=== PATIENT | male | born 1960 | race Caucasian/White ===

== ENCOUNTER 2016-08-28 17:33 | Emergency (ER) ==
[2016-08-28 17:34] VITALS: BMI 27.1
[2016-08-28] MEDS ORDERED: ZOFRAN 4 MG/2 ML IVP STA (17:53)
[2016-08-28] MEDS ORDERED: TORADOL IVP STA (17:53)
[2016-08-28] MEDS ORDERED: MORPHINE 4 MG/ML SYRINGE IVP STA (17:54)
--- NOTE | 2016-08-28 18:00 | ED.PDOC ---
General ED Provider: Dr. PATITO DUFF JR Chief Complaint: Abdominal Pain Stated Complaint: PAIN LEFT FLANK TO ABD TO LEFT TESTICLE 90 min [End]98.4 90 20 98% 172/100 02/22 Time Seen by Physician: 17:57 Mode of Arrival: Walk-In Information Source: Patient Exam Limitations: No limitations Primary Care Provider: MIKE POTTS Nursing and Triage Documentation Reviewed and Agree: No Review of Systems - Review Of Systems Constitutional: Reports: No symptoms Eyes: Reports: No symptoms Ears, Nose, Mouth, Throat: Reports: No symptoms Respiratory: Reports: No symptoms Cardiac: Reports: No symptoms GI: Reports: No symptoms : Reports: Flank pain Musculoskeletal: Reports: Other Skin: Reports: No symptoms Neurological: Reports: No symptoms Endocrine: Reports: No symptoms Hematologic/Lymphatic: Reports: No symptoms All Other Systems: Other Past Medical History - Past Medical History Endocrine: Reports: None Cardiovascular: Reports: Hypertension Respiratory: Reports: None Hematological: Reports: None Gastrointestinal: Reports: GERD Genitourinary: Reports: None Neuro/Psych: Reports: None Musculoskeletal: Reports: None Cancer: Reports: None - Surgical History General Surgical History: Reports: Appendectomy - Family History Family History: Reports: Unknown (does not recall any family mentioning kidney stones) - Social History Smoking Status: Current every day smoker Hx Substance Use: No Alcohol Screening: None Physical Exam - Physical Exam Appearance: Well-appearing Pain Distress: Moderate Eyes: ABBIE, EOMI, Conjunctiva clear ENT: Ears normal, Nose normal, Oropharynx normal Neck: Supple Respiratory: Airway patent, Breath sounds clear, Breath sounds equal, Respirations nonlabored Cardiovascular: RRR, Pulses normal, No rub, No murmur GI/: Soft, Nontender, No masses, Bowel sounds normal, No Organomegaly (pain left cva without tenderness radiates from left testicle no benefit with elevation, non tender) Musculoskeletal: Normal strength Skin: Warm, Dry, Normal color Neurological: Sensation intact, Motor intact, Reflexes intact, Cranial nerves intact, Alert, Oriented Interpretation - Radiology Interpretation Radiology Interpretation By: Radiologist Radiology Results: Positive Exam Interpreted: CT Scan (abdome left sided stone) Critical Care Note - Critical Care Note Total Time (mins): 0 Course - Course Hematology/Chemistry: 08/28/16 17:35 08/28/16 17:35 Orders, Labs, Meds: Lab Review 08/28/16 17:35 WBC 13.00 H RBC 5.01 Hgb 14.7 Hct 42.7 MCV 85.2 MCH 29.3 MCHC 34.4 RDW Coeff of Miguel 13.6 Plt Count 388 Immature Gran % (Auto) 0.5 Neut % (Auto) 76.7 Lymph % (Auto) 15.3 Wharton % (Auto) 6.2 Eos % (Auto) 0.5 Baso % (Auto) 0.8 Immature Gran # (Auto) 0.1 Neut # 10.0 H Lymph # 2.0 Wharton # 0.8 Eos # 0.1 Baso # 0.1 Sodium 139 Potassium 4.2 Chloride 107 Carbon Dioxide 22 Anion Gap 14.2 BUN 19 H Creatinine 1.42 H Estimated GFR (MDRD) 52.00 BUN/Creatinine Ratio 13.38 Glucose 109 H Calcium 9.9 Total Bilirubin 0.55 AST 26 ALT 24 Alkaline Phosphatase 153 H Total Protein 7.4 Albumin 4.1 Globulin 3.3 Albumin/Globulin Ratio 1.24 Amylase 147 H Lipase 218 H Orders Category Date Time Status ED IV/MEDIPORT/POWERPORT .ONCE EMERGENCY 08/28/16 17:52 Active AMYLASE Stat LAB 08/28/16 17:35 Completed CBC W/ AUTO DIFF Stat LAB 08/28/16 17:35 Completed COMPREHENSIVE METABOLIC PANEL Stat LAB 08/28/16 17:35 Completed LIPASE Stat LAB 08/28/16 17:35 Completed URINALYSIS C & S IF INDICATED Stat LAB 08/28/16 17:52 Uncollected 0.9 % Sodium Chloride [Saline Flush] MEDS 08/28/16 17:52 Ordered 1 syr IVF PRN PRN Ketorolac Tromethamine [Toradol] MEDS 08/28/16 17:53 Discontinued 30 mg IVP ONCE STA Morphine Sulfate [Morphine 4 mg/ml Syringe] MEDS 08/28/16 17:54 Discontinued 4 mg IVP ONCE STA Ondansetron HCl/Pf [Zofran 4 mg/2 ml] MEDS 08/28/16 17:53 Discontinued 4 mg IVP ONCE STA CT ABDOMEN/PELVIS WO CONTRAST Stat RADS 08/28/16 17:52 Completed Medications Generic Name Dose Route Start Last Admin Trade Name Freq PRN Reason Stop Dose Admin Sodium Chloride 1 syr 08/28/16 17:52 Saline Flush IVF PRN PRN To flush IV Discontinued Medications Generic Name Dose Route Start Last Admin Trade Name Freq PRN Reason Stop Dose Admin Ketorolac Tromethamine 30 mg 08/28/16 17:53 08/28/16 17:59 Toradol IVP 08/28/16 17:54 30 mg ONCE STA Administration Morphine Sulfate 4 mg 08/28/16 17:54 08/28/16 18:00 Morphine 4 Mg/Ml Syringe IVP 08/28/16 17:55 4 mg ONCE STA Administration Ondansetron HCl 4 mg 08/28/16 17:53 08/28/16 18:00 Zofran 4 Mg/2 Ml IVP 08/28/16 17:54 4 mg ONCE STA Administration Vital Signs: Temp Pulse Resp BP Pulse Ox 08/28/16 17:38 98.4 F 90 20 172/100 H 98 Departure - Departure Time of Disposition: 18:00 Disposition: HOME SELF-CARE Discharge Problem: Left ureteral calculus Instructions: Renal Colic (ED), Ureteral Stones (ED) Condition: Good Pt referred to PMD for follow-up: Yes Additional Instructions: pancreatic enzymes are slightly positive recommend avoid milk and solid food for 7 to 10 days and recheck labs no alcohol while pancreatic enzymes are elevated will need further lab studies for pancreatitis stone in left Ureter(kidney stone) appears to be responsible for pain stone is small enough it should pass increase clear liquids Toradol for pain Dellrose for pain not controlled Flomax to encourage stone to pass Recommend consult Urology for kidney stones recommend save stone for analysis(strain Urine) Prescriptions: Hydrocodone Bit/Acetaminophen [Dellrose 5-325] 1 - 2 tab PO Q6HR PRN #12 tablet PRN Reason: pain Ketorolac Tromethamine [Toradol] 10 mg PO QID PRN #20 tablet PRN Reason: PAIN Tamsulosin HCl [Flomax] 0.4 mg PO DAILY #30 cap.er.24h Allergies/Adverse Reactions: Allergies No Known Allergies Allergy (Verified 08/28/16 17:36) Home Medications: Ambulatory Orders Omeprazole [Prilosec] 20 mg PO QDAC 07/07/13 Hydrocodone Bit/Acetaminophen [Dellrose 5-325] 1 - 2 tab PO Q6HR PRN #12 tablet Ketorolac Tromethamine [Toradol] 10 mg PO QID PRN #20 tablet 08/28/16 Losartan Potassium [Cozaar] 25 mg PO DAILY 08/28/16 Tamsulosin HCl [Flomax] 0.4 mg PO DAILY #30 cap.er.24h 08/28/16
[2016-08-28 18:05] LABS: BASOPHILS # (AUTO) 0.1 K/uL (0-0.2); BASOPHILS % (AUTO) 0.8 % (0.0-3.0); EOSINOPHILS # (AUTO) 0.1 K/ul (0.0-0.7); EOSINOPHILS % (AUTO) 0.5 % (0.0-7.0); HEMATOCRIT 42.7 % (42.0-52.0); HEMOGLOBIN 14.7 g/dl (14.0-18.0); IMMATURE GRANULOCYTE % (AUTO) 0.5 % (0.0-5.0); LYMPHOCYTES % (AUTO) 15.3 (10.0-50.0); MEAN CORPUSCULAR HEMOGLOBIN 29.3 pg (27.0-31.0); MEAN CORPUSCULAR HGB CONC 34.4 (31.8-35.4); MEAN CORPUSCULAR VOLUME 85.2 fl (80.0-94.0); MONOCYTES # (AUTO) 0.8 K/uL (0.4-2.0); MONOCYTES % (AUTO) 6.2 (0-10); NEUTROPHILS % (AUTO) 76.7; PLATELET COUNT 388 10^3/uL (140-440); RED BLOOD COUNT 5.01 10^6/ul (4.70-6.10)
[2016-08-28 18:30] LABS: ALBUMIN 4.1 g/dL (3.4-5.0); ALBUMIN/GLOBULIN RATIO 1.24; ANION GAP 14.2; BILIRUBIN,TOTAL 0.55 mg/dL (0.00-1.20); BUN/CREATININE RATIO 13.38; CALCIUM 9.9 mg/dL (8.2-10.2); CREATININE 1.42 mg/dL (0.60-1.10); POTASSIUM 4.2 mmol/L (3.5-5.1); TOTAL PROTEIN 7.4 g/dL (6.4-8.2)
--- NOTE | 2016-08-28 18:34 | CT ---
EXAM: CT ABDOMEN AND PELVIS HISTORY: Abdominal pain TECHNIQUE: CT abdomen and pelvis without intravenous contrast. Images were reconstructed using 3 m m section thickness. Reformations were prepared. COMPARISON: None FINDINGS: There is mild left hydronephrosis secondary to a 0.32 cm calculus within the distal ureter at the ve sicoureteral junction. Subtle left perinephric fat stranding. No current nephrolithiasis. Right kid poncho and ureter appear normal. Urinary bladder proper within normal limits. No focal hepatic lesion identified. A few splenic calcifications consistent with old granulomatous disease. Gallbladder, pancreas and adrenal glands are within normal limits. There is mild aortic a therosclerosis. No gastric distension. No appendix is identified. Nonobstructive bowel gas patter n. A few rare scattered diverticula of the colon. There is no prostate enlargement or ascites. The re is a small fatty umbilical hernia with a transverse neck of about a centimeter likely of no curre nt clinical significance. Bones reveal no acute abnormality and lung bases are free of infiltrate. IMPRESSION: 1. Mild left hydronephrosis secondary to a 0.32 cm calculus within the distal left ureter at the ve sicoureteral junction. Minimal left perinephric fat stranding. 2. Mild atherosclerotic disease. 3. A few rare colonic diverticula.
[2016-08-28 19:00] LABS: BILIRUBIN,URINE Negative (NEGATIVE); KETONES,URINE 1+ (NEGATIVE); LEUKOCYTE ESTERASE ,URINE Negative (NEGATIVE); NITRITE,URINE Negative (NEGATIVE); PH,URINE 5.5 (5-9); PROTEIN,URINE Negative (NEGATIVE); URINE, BLOOD 2+ (NEGATIVE)
[2016-08-28 19:06] LABS: ADD URINE MICROSCOPIC YES; BACTERIA,URINE TRACE (NOT PRESENT)
[2016-08-28 19:11] VITALS: BP 139/91; TEMP 98.6
== END 2016-08-28 19:28 | disposition home or self-care (01) ==
LOC: ED 17:33
DX: N20.1 Calculus of ureter (principal); R74.8 Abnormal levels of other serum enzymes; F17.210 Nicotine dependence, cigarettes, uncomplicated; Z79.899 Other long term (current) drug therapy
CPT/HCPCS: 36415; 80053; 81001; 82150; 83690; 85025; 96375; 99284; 99285